=== PATIENT | male | born 1950 | race Caucasian/White ===

== ENCOUNTER → 2017-05-07 | Outpatient (CLI) | payer MEDICARE, OTHER ==
--- NOTE | 2017-05-07 13:47 | CT ---
EXAM DESCRIPTION: Abdomen/Pelvis w/wo Contrast CLINICAL HISTORY: LLQ PAIN COMPARISON: None. TECHNIQUE: Spiral-axial scans at 5.0 - mm intervals from the lung bases through the pubic symphysis, before and after nonionic IV contrast . Coronal and sagittal 2.0 - mm reconstructions. Delayed helical/5.0 - mm scans, same levels. Scans repeated through the same levels after Water soluble barium contrast. No adverse reactions. This exam was performed according to our departmental CT dose-optimization program which includes automated exposure control, adjustment of the mA and/or kV according to patient size and/or use of iterative reconstruction technique; to reduce radiation dose to as low as reasonably achievable (ALARA). FINDINGS: Lung bases and pleura: Unremarkable. Liver, Spleen, Stomach, Adrenal glands: Negative. Pancreas/Gallbladder/Ducts: Gallbladder visualized. Pancreas and ducts unremarkable. Kidneys and Ureters: Cyst upper pole lateral left kidney. Mesentery: No stranding no free fluid no free air. Aorta: Ectasia and atherosclerotic calcification. Small Bowel: Oral contrast. Fluid and gas but no significant air-fluid levels. No wall thickening. Terminal Ileum/Cecum: Oral contrast. No air-fluid levels or wall thickening. Appendix not seen. Normal density of surrounding mesentery. Colon: Fecal material proximal. Minimal distention of the transverse colon and sigmoid colon with gas. Wall thickening distal sigmoid but no surrounding fluid or fatty stranding. Moderate amount of feces in the rectum. Pelvic Organs: Calcification of the central prostate gland abutting the base of the urinary bladder with minimal impression. No radiodense stones in the urinary bladder. No free fluid. Spine and Bony Pelvis: Spondylosis at every level of the lumbar spine with borderline canal stenosis at L3-4 and significant bilateral foraminal narrowing L4-5 and L5-S1. Grade 1 anterolisthesis L5-S1. No bone destruction. Scoliosis. Subchondral cyst or radiolucency in the superior lateral right acetabulum. Abdominal Wall/Back Soft Tissues: Fatty left inguinal hernia not containing bowel. IMPRESSION: 1. Thickening of the distal sigmoid colon wall with no inflammatory changes in the adjacent fatty tissue indicating a chronic or indolent process. Distention of the sigmoid colon proximal to the narrowing. No free air or free fluid. No small bowel obstruction. No bowel or mesenteric abnormalities noted in the left lower quadrant of the abdomen. 2. Diffuse spondylosis lumbar spine grade 1 anterolisthesis L5-S1. Significant bilateral foraminal narrowing L4-5 and L5-S1 and borderline canal stenosis L3-4. 3. Left inguinal hernia, not containing bowel. 4. Calcification of the central prostate gland with minimal impression on the urinary bladder. 5. Cyst in the upper left kidney. Electronically signed by: Steve Park MD 05/07/2017 1:46 PM CDT
== END | disposition home or self-care (01) ==
LOC: CT 10:24
PROVIDERS: ATTEND Family Medicine
DX: R10.32 Left lower quadrant pain (principal); R53.82 Chronic fatigue, unspecified

== ENCOUNTER → 2017-05-30 | Outpatient (CLI) | payer MEDICARE, OTHER ==
--- NOTE | 2017-05-30 18:10 | US ---
EXAM DESCRIPTION: Liver CLINICAL HISTORY: 66 years Male ELEVATED LFT'S COMPARISON: None. TECHNIQUE: Transabdominal grayscale imaging were performed to evaluate the right upper quadrant. FINDINGS: Increased echogenicity of the liver consistent with fatty infiltration. No focal lesions are noted. The visualized thickness the pancreas appear unremarkable. Unremarkable gallbladder without sludge or stones. No wall thickening. Common duct is within normal limits. Right kidney measures 10.2 cm without hydronephrosis mass or calculus. IMPRESSION: No evidence of acute process Mild fatty infiltration of the liver Electronically signed by: Kelly Vyas 05/30/2017 6:08 PM EVALUATOR
== END | disposition home or self-care (01) ==
LOC: US 14:26
PROVIDERS: ATTEND Family Medicine
DX: R94.6 Abnormal results of thyroid function studies (principal)

== ENCOUNTER 2018-03-09 05:39 | Day surgery (SDC) | payer MEDICARE, OTHER ==
[2018-03-09] MEDS ORDERED: PROPARACAINE 0.5% OPHTH SOL 15 ML BTTL ONE (08:53)
[2018-03-09] MEDS ORDERED: TROP 1%/CYCLOPEN 1%/PHENYL 2% DROPS ONE (08:53)
[2018-03-09] MEDS ORDERED: MIDAZOLAM INJ 2 MG/2 ML VIAL ONE (11:45)
[2018-03-09] MEDS ORDERED: PROPARACAINE 0.5% OPHTH SOL 15 ML BTTL RIGHT_EYE ONE (11:48)
[2018-03-09] MEDS ORDERED: BRIMONIDINE 0.2% OPHTH DROPS RIGHT_EYE ONE ×2 (11:58→12:14)
[2018-03-09] MEDS ORDERED: DEXAMETHASONE 0.1% OPHTH SOL 1 DROP RIGHT_EYE ONE ×2 (11:58→12:14)
[2018-03-09] MEDS ORDERED: LIDOCAINE 1% PF 2 ML AMP INJ ONE ×2 (11:58→12:02)
[2018-03-09] MEDS ORDERED: TOBRAMYCIN SULF 0.3 % OPHT SOL 1 DROP RIGHT_EYE ONE ×2 (11:58→12:14)
== END 2018-03-09 13:07 | disposition home or self-care (01) ==
LOC: AMB 05:39
PROVIDERS: ATTEND Ophthalmology
DX: H25.11 Age-related nuclear cataract, right eye (principal); I10 Essential (primary) hypertension; Z79.82 Long term (current) use of aspirin; Z79.899 Other long term (current) drug therapy
CPT/HCPCS: 00142; 66984; J2250

== ENCOUNTER 2018-03-23 05:34 | Day surgery (SDC) | payer MEDICARE, OTHER ==
[2018-03-23] MEDS ORDERED: PROPARACAINE 0.5% OPHTH SOL 15 ML BTTL ONE (08:32)
[2018-03-23] MEDS ORDERED: TROP 1%/CYCLOPEN 1%/PHENYL 2% DROPS ONE (08:32)
[2018-03-23] MEDS ORDERED: MIDAZOLAM INJ 2 MG/2 ML VIAL ONE (10:13)
[2018-03-23] MEDS ORDERED: PROPARACAINE 0.5% OPHTH SOL 15 ML BTTL LEFT_EYE ONE (10:15)
[2018-03-23] MEDS ORDERED: DEXAMETHASONE 0.1% OPHTH SOL 1 DROP LEFT_EYE ONE ×2 (10:20→10:40)
[2018-03-23] MEDS ORDERED: LIDOCAINE 1% PF 2 ML AMP INJ ONE (10:20)
[2018-03-23] MEDS ORDERED: BRIMONIDINE 0.2% OPHTH DROPS LEFT_EYE ONE ×2 (10:21→10:40)
[2018-03-23] MEDS ORDERED: TOBRAMYCIN SULF 0.3 % OPHT SOL 1 DROP LEFT_EYE ONE ×2 (10:21→10:40)
== END 2018-03-23 11:15 | disposition home or self-care (01) ==
LOC: AMB 05:34
PROVIDERS: ATTEND Ophthalmology
DX: H25.12 Age-related nuclear cataract, left eye (principal); I10 Essential (primary) hypertension; Z79.82 Long term (current) use of aspirin; Z79.899 Other long term (current) drug therapy
CPT/HCPCS: 00142; 66984; J2250

== ENCOUNTER → 2018-06-01 | Outpatient (CLI) | payer MEDICARE, OTHER | LOC: LAB.O 10:37 | PROVIDERS: ATTEND Family Medicine | DX: K70.0 Alcoholic fatty liver (principal); R94.5 Abnormal results of liver function studies ==

== ENCOUNTER → 2018-12-25 | Outpatient (CLI) | payer MEDICARE, OTHER | LOC: LAB.O 08:17 | PROVIDERS: ATTEND Family Medicine | DX: B17.10 Acute hepatitis C without hepatic coma (principal); R53.83 Other fatigue; K86.1 Other chronic pancreatitis; E29.1 Testicular hypofunction; E53.8 Deficiency of other specified B group vitamins ==

== ENCOUNTER → 2019-05-28 | Outpatient (CLI) | payer MEDICARE, OTHER | LOC: GMAF 12:35 | PROVIDERS: ATTEND Nurse Practitioner Family | DX: E53.8 Deficiency of other specified B group vitamins (principal); R53.83 Other fatigue; E55.9 Vitamin D deficiency, unspecified; R10.84 Generalized abdominal pain ==

== ENCOUNTER → 2019-05-31 | Outpatient (CLI) | payer MEDICARE, OTHER | END | disposition home or self-care (01) | LOC: GMAL 10:37 | PROVIDERS: ATTEND Family Medicine | DX: Z12.5 Encounter for screening for malignant neoplasm of prostate (principal); E55.9 Vitamin D deficiency, unspecified | CPT/HCPCS: 82306; G0103 ==

== ENCOUNTER → 2019-06-02 | Outpatient (CLI) | payer MEDICARE, OTHER ==
--- NOTE | 2019-06-02 13:34 | CT ---
Study: CT abdomen and pelvis. Indication: Left lower quadrant pain Technique: Noncontrast, venous, and delayed phase CT imaging of the abdomen and pelvis obtained after intravenous administration of contrast. This exam was performed according to our departmental dose-optimization program, which includes automated exposure control, adjustment of the mA and/or kV according to patient size and/or use of iterative reconstruction technique. Comparison: May 07, 2017. Findings: Lower chest, liver, gallbladder, pancreas, spleen, adrenal glands, kidneys, bladder, prostate gland demonstrate a stable appearance. Circumferential wall thickening of the cecum extending into the proximal right colon noted. This could relate to contraction, however malignancy is not excluded. No perforation or surrounding inflammation. Appendix not visualized. Stomach and small bowel unremarkable. No free fluid. No free air. No pathologically enlarged lymphadenopathy. Transverse aorta. Degenerative changes of the spine noted. Bilateral L5 spondylolysis and grade 1 spondylolisthesis Impression: Abnormal wall thickening versus focal contractions of the right colon as above. Further characterization with colonoscopy recommended if not recently performed as malignancy should be excluded. No acute inflammatory process identified. Additional findings as above. Electronically signed by: Eugene Michelle MD 06/02/2019 1:32 PM DISPATCHER [employer]IO
== END ==
LOC: CT 08:00
PROVIDERS: ATTEND Family Medicine
DX: K63.9 Disease of intestine, unspecified (principal)

== ENCOUNTER 2019-06-24 05:24 | Day surgery (SDC) | payer MEDICARE, OTHER ==
[2019-06-24] MEDS ORDERED: LIDOCAINE 1% 10 ML VIAL INJ ONE (07:00)
[2019-06-24] MEDS ORDERED: PROPOFOL 200 MG/20 ML VIAL IV ONE (07:00)
[2019-06-24] MEDS ORDERED: LACTATED RINGERS 1,000 ML ONE (07:03)
[2019-06-24] MEDS ORDERED: MIDAZOLAM INJ 2 MG/2 ML VIAL ONE (08:42)
[2019-06-24] MEDS ORDERED: fentaNYL CITRATE INJ 50 MCG/ML AMP ONE (08:43)
--- NOTE | 2019-06-24 10:18 | OP ---
DATE OF PROCEDURE: 06/24/19 PREOPERATIVE DIAGNOSIS: 1. Abdominal pain. 2. Bloating. 3. Unexplained weight loss. POSTOPERATIVE DIAGNOSIS: 1. Abdominal pain. 2. Bloating. 3. Unexplained weight loss. PROCEDURE: 1. EGD with antral biopsy times two, one for Helicobacter pylori and esophageal biopsy times one, possible lizzy esophagitis. 2. Colonoscopy. SURGEON: Zaid Sue MD ANESTHESIA: General and local. FINDINGS: On EGD, he had whitish reilly plaques throughout the esophagus, primarily mid and distal. No obvious ulcers, no bleeding, no varices. It appeared to be lizzy. In the stomach, he had some striping in the distal antrum. Biopsies were taken. H. pylori was sent. The duodenum was normal. COMPLICATIONS: None. ESTIMATED BLOOD LOSS: None. CONDITION: Stable. PLAN: Discharge. INDICATION: As stated. PROCEDURE: General anesthesia was induced. He was prepared for EGD. The scope was passed without difficulty with the above findings in the esophagus. We went through the stomach without problem and into the third portion of the duodenum without problem. On withdrawal, the duodenum was normal. The distal stomach had some evidence of mild gastritis. Two biopsies were taken and one sent for H. pylori. Retroflexion of the scope revealed normal body and fundus. Again on withdrawal, we flushed it and some of this material flushed, but overall the base did show not severe esophagitis, but what appeared to be lizzy, so biopsy was taken. The scope was withdrawn. He was awakened and taken to the Recovery to be discharged. #[id number] cc: Elpidio Del Valle MD [facility]
[2019-06-24 11:01] VITALS: BP 171/90; TEMP 98.6; O2SAT 96
== END 2019-06-24 10:40 | disposition home or self-care (01) ==
LOC: AMB 05:24
PROVIDERS: ATTEND Surgery
DX: R10.32 Left lower quadrant pain (principal); K29.50 Unspecified chronic gastritis without bleeding; B37.81 Candidal esophagitis; R63.4 Abnormal weight loss; I10 Essential (primary) hypertension; Z86.19 Personal history of other infectious and parasitic diseases; Z88.8 Allergy status to other drugs, medicaments and biological substances; Z79.82 Long term (current) use of aspirin; Z79.899 Other long term (current) drug therapy
CPT/HCPCS: 00813; 43239; 45378; 88305; J2250; J3010; J3490; J7120

== ENCOUNTER 2020-07-15 15:26 | Emergency (ER) | payer MEDICARE, OTHER ==
[2020-07-15] MEDS ORDERED: ONDANSETRON INJ 4 MG/2 ML VIAL ONE (16:04)
[2020-07-15] MEDS ORDERED: SODIUM CHLORIDE 0.9% (FLUSH) 10 ML SYG IV PRN (16:10)
[2020-07-15] MEDS ORDERED: SODIUM CHLORIDE 0.9% 1000ML 1,000 ML IVS ONE ×2 (16:10→17:59)
[2020-07-15] MEDS ORDERED: ONDANSETRON INJ 4 MG/2 ML VIAL IV ONE (16:15)
[2020-07-15 16:44] VITALS: O2SAT 98
--- NOTE | 2020-07-15 18:22 | ED.PDOC ---
History of Present Illness - General Chief Complaint: Abdominal Pain Stated Complaint: nausea, abdominal pain Time Seen by Provider: 07/15/20 16:10 Information Source: patient, RN notes reviewed, Vital Signs reviewed, family - Exam Limitations: no limitations - History of Present Illness Initial Comments: Is a 69-year-old white male who noted onset of lower abdominal pain starting this morning. The pain is cramping in nature. It is intermittent. It waxes and wanes. There is no radiation of the pain. It is severe in intensity. He has never had anything like this before. Abdominal Pain Onset Location: RLQ, LLQ, suprapubic Pain Radiation: no radiation Quality: severe, cramping Timing/Duration: 4-6 hours Improving Factors: nothing Worsening Factors: nothing Associated Symptoms: nausea/vomiting - nausea only Review of Systems - Review of Systems Constitutional: States: no symptoms reported, see HPI. Denies: chills, fever, malaise, weakness EENTM: States: no symptoms reported. Denies: eye pain, blurred vision, double vision Respiratory: States: no symptoms reported. Denies: cough, short of breath, stridor, wheezing Cardiology: States: no symptoms reported. Denies: chest pain, palpitations, syncope Gastrointestinal/Abdominal: States: see HPI, abdominal pain, nausea. Denies: diarrhea, vomiting Genitourinary: States: no symptoms reported. Denies: discharge, dysuria, frequency, hematuria Musculoskeletal: States: no symptoms reported. Denies: back pain, joint pain, neck pain Skin: States: no symptoms reported. Denies: change in color, rash Neurological: States: see HPI, anxiety. Denies: headache, tingling, tremors, weakness Endocrine: States: no symptoms reported. Denies: increased hunger, increased thirst, increased urine Hematologic/Lymphatic: States: no symptoms reported. Denies: blood clots, easy bleeding All other Systems: Reviewed and Negative, No Change from Baseline Past Medical History (General) - Patient Medical History Hx Stroke: No Hx Dementia: No Hx Congestive Heart Failure: No Hx Hypertension: Yes Hx Diabetes: No Hx Gastroesophageal Reflux: No Hx Renal Disease: No Hx of HIV: No Hx MRSA: No Family Medical History - Family History Mother Family History: No Known Physical Exam - Physical Exam General Appearance: Alert, Anxious, Obvious distress, Well Developed, Well Groomed, Well Hydrated, Well Nourished Eyes, Ears, Nose, Throat Exam: PERRL/EOMI, normal ENT inspection, pharynx normal - except dry MM. Neck: non-tender, full range of motion, supple Respiratory: chest non-tender, lungs clear, normal breath sounds, no respiratory distress, no accessory muscle use Cardiovascular/Chest: normal peripheral pulses, no edema, no gallop, no JVD, no murmur, tachycardia Peripheral Pulses: No deficit Gastrointestinal/Abdominal: normal bowel sounds, soft, no organomegaly, tenderness - mild suprapubic discomfort Back Exam: normal inspection, no CVA tenderness, no vertebral tenderness Extremity: normal range of motion, non-tender, normal inspection Neurologic: calculation reviewer II-XII nml as tested, no motor/sensory deficits, alert, normal mood/affect, oriented x 3 Skin Exam: normal color, warm/dry Lymphatic: no adenopathy Progress - Progress Progress: Differential diagnosis: Panic attack, UTI, bowel obstruction, diverticulitis among others. 07/15/20 18:49 Patient has markedly improved after IV Ativan. Lab work is relatively unremarkable except for mildly elevated bilirubin. CT scan does not show any acute intra-abdominal process. Urinalysis shows some dehydration with 80+ ketones. Patient has been given IV fluids. Plan on discharge home with follow- up with PCP. I discussed this plan of care with the patient and his and they voiced understanding and agreement. Vamshi Lord M.D. #[id number] 07/15/20 18:50 Patient does have a mildly elevated lipase which may be consistent with some early pancreatitis. His pain is not epigastric in nature and actually is suprapubic so this does not fit with physical exam but I will diagnose him with mild pancreatitis and discharge him home with some pain medicine and antinausea medicine. - Results/Orders Results/Orders: EKG performed 15 July 2020 at 1537 hrs.: Normal sinus rhythm at 90 bpm, left axis deviation, minimal voltage criteria for LVH, abnormal EKG. No comparison EKG available at this time. 07/15/20 16:10 IV Care:Saline Lock per Protoc QSHIFT Sodium Chloride 0.9% (Flush) [Saline Flush Syringe] 10 ml IV PRN PRN 07/15/20 16:45 EKG STAT 07/15/20 17:59 Hold Metformin x 48Hrs [id number] Sodium Chloride 0.9% 1000ML [Ns 1000 ml] 1,000 ml IVS ONCE Laboratory Results - last 24 hr 07/15/20 07/15/20 07/15/20 16:17 16:17 17:19 WBC 10.6 RBC 5.04 Hgb 16.4 Hct 46.9 MCV 93.0 MCH 32.6 H MCHC 35.0 RDW 12.9 Plt Count 218 MPV 8.5 Absolute Neuts (auto) 8.30 H Absolute Lymphs (auto) 1.20 Absolute Monos (auto) 0.90 H Absolute Eos (auto) 0.10 Absolute Basos (auto) 0.00 Neutrophils % 77.9 Lymphocytes % 11.6 L Monocytes % 8.9 Eosinophils % 1.1 Basophils % 0.5 Sodium 133 L Potassium 3.6 Chloride 98 L Carbon Dioxide 23 Anion Gap 15.6 BUN 9 Creatinine 0.74 BUN/Creatinine Ratio 12.2 Random Glucose 107 H Serum Osmolality 265.5 L Calcium 9.5 Total Bilirubin 2.3 H* Direct Bilirubin 0.3 H Indirect Bilirubin 2.0 H AST 22 ALT 22 Alkaline Phosphatase 95 Serum Total Protein 7.9 Albumin 4.6 Lipase 81 H Urine Color Yellow Urine Appearance Clear Urine pH 8.5 H Ur Specific [place] 1.020 Urine Protein Negative Urine Glucose (UA) Negative Urine Ketones 80 H Urine Blood Negative Urine Nitrite Negative Urine Bilirubin Negative Urine Urobilinogen 0.2 Ur Leukocyte Esterase Negative Urine RBC 0 Urine WBC 0 Ur Epithelial Cells 0 Amorphous Sediment 2+ Urine Bacteria 0 EXAM: Abdomen/Pelvis w/Contrast CLINICAL INDICATION: Abdominal pain. COMPARISON: 06/02/2019 TECHNIQUE: The CT scan was done using contiguous axial 5 mm postcontrast sections through the abdomen and pelvis including IV contrast. This exam was performed according to our departmental dose-optimization program, which includes automated exposure control, adjustment of the mA and/or kV according to patient size and/or use of iterative reconstruction technique. FINDINGS: The visualized portions of the lung bases reveal a calcified granuloma in the left lower lobe and a noncalcified subpleural micronodule in the right lower lobe measuring 3 mm which is unchanged from 05/07/2017 consistent with a benign process. The lung bases are otherwise clear. There is a tiny cyst in the right lobe of the liver measuring 7 mm. The liver and gallbladder otherwise are unremarkable. There is a simple cyst in the left kidney measuring 11 mm. The kidneys, adrenal glands, spleen, and pancreas are otherwise unremarkable. The aorta is normal in caliber. There are no dilated loops of small bowel. The appendix is not clearly identified. There is no free air, free fluid, or abscess. IMPRESSION: No evidence of an acute intra-abdominal process. Electronically signed by: Cam Bagley MD 07/15/2020 6:42 PM [facility] [employer] Vital Signs 07/15/20 15:42 Temperature 98.4 F Pulse Rate [ 101 H right brachial] Respiratory 40 H Rate Blood Pressure 174/113 [right brachial ] O2 Sat by Pulse 98 Oximetry Departure - Departure Clinical Impression: Dehydration Pancreatitis Qualifiers: Chronicity: acute Pancreatitis type: unspecified pancreatitis type Acute pancreatitis complication: unspecified Qualified Code(s): K85.90 - Acute pa ncreatitis without necrosis or infection, unspecified Abdominal pain Qualifiers: Abdominal location: lower abdomen, unspecified Qualified Code(s): R10.30 - Lower abdominal pain, unspecified Time of Disposition: 18:52 Disposition: Discharge to Home or Self Care Condition: Good Departure Forms: ED Discharge - Pt. Copy, Patient Portal Self Enrollment Instructions: DI for Abdominal Pain-Adult, Dehydration, Adult (DC), Pancreatitis (DC), Abdominal Pain, Adult ED Diet: full liquid diet - x24 hrs Activity: increase activity as tolerated Referrals: Elpidio Del Valle III, MD [Primary Care Provider] - 1-5 Days Prescriptions: Acetaminophen W/ Codeine [Tylenol W/ CODEINE #3] 1 tab PO Q6HR #20 tab Ondansetron [Ondansetron Odt] 4 mg PO Q6H #20 tab Home Medications: Ambulatory Orders Aspirin [Aspirin Adult Low Dose] 81 mg PO DAILY@0700 06/23/19 Atenolol [Tenormin] 25 mg PO DAILY@0700 06/23/19 Cyanocobalamin [B12] 1,000 mcg PO DAILY@0700 06/23/19 Megestrol Acetate 40 mg PO QPM 06/23/19 Acetaminophen W/ Codeine [Tylenol W/ CODEINE #3] 1 tab PO Q6HR #20 tab 07/15/20 Ondansetron [Ondansetron Odt] 4 mg PO Q6H #20 tab 07/15/20
--- NOTE | 2020-07-15 18:43 | CT ---
EXAM: Abdomen/Pelvis w/Contrast CLINICAL INDICATION: Abdominal pain. COMPARISON: 06/02/2019 TECHNIQUE: The CT scan was done using contiguous axial 5 mm postcontrast sections through the abdomen and pelvis including IV contrast. This exam was performed according to our departmental dose-optimization program, which includes automated exposure control, adjustment of the mA and/or kV according to patient size and/or use of iterative reconstruction technique. FINDINGS: The visualized portions of the lung bases reveal a calcified granuloma in the left lower lobe and a noncalcified subpleural micronodule in the right lower lobe measuring 3 mm which is unchanged from 05/07/2017 consistent with a benign process. The lung bases are otherwise clear. There is a tiny cyst in the right lobe of the liver measuring 7 mm. The liver and gallbladder otherwise are unremarkable. There is a simple cyst in the left kidney measuring 11 mm. The kidneys, adrenal glands, spleen, and pancreas are otherwise unremarkable. The aorta is normal in caliber. There are no dilated loops of small bowel. The appendix is not clearly identified. There is no free air, free fluid, or abscess. IMPRESSION: No evidence of an acute intra-abdominal process. Electronically signed by: Cam Bagley MD 07/15/2020 6:42 PM CLIENT SERVICES COORDINATOR
[2020-07-15] MEDS ORDERED: ONDANSETRON ODT (ER DISP) 8 MG TAB PO ONE ×2 (19:24)
[2020-07-15] MEDS ORDERED: ACETAMINOPHEN W/COD #3 TAB (ER Disp) PO ONE ×2 (19:24)
[2020-07-15 19:58] VITALS: TEMP 97.8
[2020-07-15 20:00] VITALS: BP 170/90
== END 2020-07-15 19:40 | disposition home or self-care (01) ==
LOC: ER 15:26
DX: K85.90 Acute pancreatitis without necrosis or infection, unspecified (principal); E86.0 Dehydration; I10 Essential (primary) hypertension
CPT/HCPCS: 36415; 74177; 80048; 80076; 81001; 83690; 85025; 93005; J2060; J2405; J7030

== ENCOUNTER → 2020-07-27 | Outpatient (CLI) | payer MEDICARE, OTHER | LOC: GMAL 16:44 | PROVIDERS: ATTEND Family Medicine | DX: K86.1 Other chronic pancreatitis (principal); R30.0 Dysuria ==

== ENCOUNTER → 2020-08-08 | Outpatient (CLI) | payer MEDICARE, OTHER | LOC: GMAL 14:30 | PROVIDERS: ATTEND Family Medicine | DX: R10.0 Acute abdomen (principal); Z79.899 Other long term (current) drug therapy; R30.0 Dysuria ==